=== PATIENT | female | born 1995 | race Caucasian/White ===

== ENCOUNTER 2020-04-21 12:20 | Outpatient (CLI) | payer OTHER ==
--- NOTE | 2020-04-21 13:35 | RAD ---
2 VIEW ABDOMEN: Date: 04/21/2020 PROVIDED CLINICAL HISTORY: Abdominal pain. FINDINGS: The abdominal bowel gas pattern is nonspecific. There is no evidence for pneumoperitoneum, with incom plete inclusion of the right hemidiaphragm. IUD overlies the pelvis slightly left of midline. No radi ographically apparent urinary tract calculi. The osseous structures appear unremarkable. IMPRESSION: Nonspecific bowel gas pattern. POS: [facility]
== END 2020-04-21 12:21 | disposition home or self-care (01) ==
LOC: RAD 12:20
PROVIDERS: ATTEND Internal Medicine Gastroenterology
DX: K58.9 Irritable bowel syndrome, unspecified (principal); K64.8 Other hemorrhoids
CPT/HCPCS: 74019